=== PATIENT | female | born 1965 | race Hispanic/Latino ===

== ENCOUNTER 2020-12-09 06:29 | Day surgery (SDC) | payer MEDICARE, MEDICAID ==
[2020-12-07 14:10] VITALS: BMI 20.7
[2020-12-09] MEDS ORDERED: EPINEPHrine 1 MG/ML AMP ONE (06:36)
[2020-12-09] MEDS ORDERED: Bupivacaine 0.25% HCL 30 ML VIAL ONE (06:36)
[2020-12-09] MEDS ORDERED: Iothalamate Meglumine 60% 50 ML VIAL FS ONE (07:11)
[2020-12-09] MEDS ORDERED: Levofloxacin 500 mg/D5W 100 ml Premix Bag ONE (07:15)
[2020-12-09 07:25] LABS: Anion Gap 12 mmol/L (10-20); BUN (Urea Nitrogen) 13 mg/dL (9.8-20.1); Calc. Creatinine Clearance 86 mL/min (70-130); Calcium 8.7 mg/dL (7.8-10.44); Carbon Dioxide 27 mmol/L (22-29); Chloride 105 mmol/L (98-107); Glucose 83 mg/dL (70-105); Potassium 4.7 mmol/L (3.5-5.1); Sodium 139 mmol/L (136-145)
[2020-12-09] MEDS ORDERED: Ioversol 68 % 50 ML VIAL ONE (08:09)
[2020-12-09] MEDS ORDERED: Fentanyl 100 MCG/2 ML VIAL ONE (09:40)
[2020-12-09] MEDS ORDERED: Dexamethasone 20 MG/5 ML VIAL ONE (09:51)
[2020-12-09] MEDS ORDERED: PROPOFOL 200 MG/20 ML VIAL ONE (09:51)
[2020-12-09] MEDS ORDERED: Ketorolac Tromethamine 30 MG/ML VIAL ONE (09:51)
[2020-12-09] MEDS ORDERED: Lidocaine 1% PF 5 ML VIAL ONE (09:51)
[2020-12-09] MEDS ORDERED: PHENYLEPHRINE-NS 100 MCG/ML 10 ML SYRINGE ONE (09:51)
[2020-12-09] MEDS ORDERED: Ondansetron PF 4 MG/2 ML Vial ONE (09:51)
[2020-12-09] MEDS ORDERED: ePHEDrine 50 MG/ML VIAL ONE (09:51)
[2020-12-15 18:37] LABS: CA Oxalate Monohydrate 10 % (.); Color Tan (.); Mg Ammon Phos 60 % (.); Stone Weight 29 mg (.)
== END 2020-12-09 12:15 | disposition home or self-care (01) ==
LOC: SDC 06:29
PROVIDERS: ATTEND Urology
PROC: 0TC38ZZ Extirpation of Matter from Right Kidney Pelvis, Via Natural or Artificial Opening Endoscopic (ICD-10-PCS; principal; 2020-12-09)
PROC: 0T768DZ Dilation of Right Ureter with Intraluminal Device, Via Natural or Artificial Opening Endoscopic (ICD-10-PCS; 2020-12-09)
DX: N20.0 Calculus of kidney (principal); G40.909 Epilepsy, unspecified, not intractable, without status epilepticus; Q90.9 Down syndrome, unspecified; F32.9 Major depressive disorder, single episode, unspecified; G47.00 Insomnia, unspecified; Z79.899 Other long term (current) drug therapy; Z88.0 Allergy status to penicillin
CPT/HCPCS: 36415; 74420; 80048; 82365; 88300; J0171; J1100; J1885; J1956; J2405; J2704; J3010; J3490; Q9967; S0020